=== PATIENT | female | born 1990 | race Caucasian/White ===

== ENCOUNTER 2022-11-02 13:15 | Inpatient (IN) | payer OTHER ==
[~2022-11-02] VITALS: Ht 182.9 cm; Wt 109.8 kg
[2022-11-02 14:18] LABS: HEMATOCRIT 42.6 % (31.2-41.9); MEAN CORPUSCULAR HEMOGLOBIN 31.1 uug (24.7-32.8); MEAN CORPUSCULAR VOLUME 90.5 fL (75.5-95.3); PLATELET COUNT (AUTO) 346 K/uL (179-408)
[2022-11-02 14:42] LABS: CARBON DIOXIDE 32 mmol/L (21-32); CHLORIDE 97 mmol/L (98-107); CREATININE 0.9 mg/dL (0.6-1.3); GLUCOSE 92 mg/dL (74-106); UREA NITROGEN, BLOOD 11 mg/dL (7-18)
[2022-11-02] MEDS ORDERED: ASPIRIN 81 MG TAB.CHEW ONE (15:58)
[2022-11-02] MEDS ORDERED: ASPIRIN 81 MG TAB.CHEW PO ONE (16:00)
[2022-11-02] MEDS ORDERED: HYDROCODONE/APAP 5-325MG TABLET PO PRN (19:45)
[2022-11-02] MEDS ORDERED: ONDANSETRON 4 MG/2 ML VIAL IV PRN (19:45)
[2022-11-02] MEDS ORDERED: ACETAMINOPHEN 325 MG TABLET PO PRN (19:45)
[2022-11-02 20:46] LABS: *AMPHETAMINE, URINE NEGATIVE (NEGATIVE); *CANNABINOID, URINE NEGATIVE (NEGATIVE); *COCCAINE, URINE NEGATIVE (NEGATIVE); *PHENCYCLIDINE SCREEN,URINE NEGATIVE (NEGATIVE)
[2022-11-02] MEDS ORDERED: ATORVASTATIN 20 MG TABLET ONE (22:45)
[2022-11-02] MEDS: ATORVASTATIN 40 MG TABLET PO SCH (22:49)
[2022-11-02 23:55] VITALS: BP 143/90
[2022-11-03] MEDS ORDERED: OXYCODONE/APAP 5-325 MG TABLET PO PRN
[2022-11-03] MEDS: OXYCODONE/APAP 5-325 MG TABLET PO PRN ×4 (00:39→22:33)
[2022-11-03 04:00] VITALS: BP_SYST 133; BP_SYST 163; BP_DIAS 88; BP_DIAS 99
[2022-11-03] MEDS: PANTOPRAZOLE SODIUM 40 MG TABLET.DR PO SCH (06:06)
[2022-11-03 06:21] LABS: MEAN CORPUSCULAR HEMOGLOBIN 31.4 uug (24.7-32.8); MEAN CORPUSCULAR VOLUME 91.1 fL (75.5-95.3); PLATELET COUNT (AUTO) 332 K/uL (179-408)
[2022-11-03 06:46] LABS: BILIRUBIN,TOTAL 0.6 mg/dL (0.2-1.0); CREATININE 0.8 mg/dL (0.6-1.3); MAGNESIUM 1.9 mg/dL (1.8-2.4); PHOSPHOROUS 3.4 mg/dL (2.5-4.9); POTASSIUM 3.6 mmol/L (3.5-5.1); TOTAL PROTEIN, SERUM 7.5 g/dL (6.4-8.2)
[2022-11-03 06:52] LABS: THYROID STIMULATING HORMONE 1.806 mIU/mL (0.358-3.740)
[2022-11-03] MEDS ORDERED: CEPH500C2 PO (07:24)
[2022-11-03] MEDS ORDERED: OXYC-128 PO (07:24)
[2022-11-03 07:30] VITALS: BP 140/82
[2022-11-03] MEDS: ASPIRIN EC 81 MG TABLET.DR PO SCH (08:39)
[2022-11-03] MEDS: CEphaleXIN 500 MG CAPSULE PO SCH ×2 (08:39→17:08)
[2022-11-03 11:36] VITALS: BP 114/73
[2022-11-03] MEDS: ALPRAZOLAM 0.25 MG TABLET PO PRN (12:26)
[2022-11-03 15:43] VITALS: BP 108/60
[2022-11-03 15:44] VITALS: BP 117/78
[2022-11-03 20:00] VITALS: BP 111/72
[2022-11-03] MEDS: ATORVASTATIN 40 MG TABLET PO SCH (22:32)
[2022-11-04] MEDS: ALPRAZOLAM 0.25 MG TABLET PO PRN (00:54)
[2022-11-04 04:00] VITALS: BP 130/74
[2022-11-04 06:39] LABS: HEMATOCRIT 39.7 % (31.2-41.9); MEAN CORPUSCULAR HEMOGLOBIN 30.3 uug (24.7-32.8); MEAN CORPUSCULAR VOLUME 90.6 fL (75.5-95.3); PLATELET COUNT (AUTO) 331 K/uL (179-408)
[2022-11-04] MEDS: PANTOPRAZOLE SODIUM 40 MG TABLET.DR PO SCH (07:11)
[2022-11-04 07:14] LABS: CREATININE 0.8 mg/dL (0.6-1.3); MAGNESIUM 1.9 mg/dL (1.8-2.4); PHOSPHOROUS 3.5 mg/dL (2.5-4.9); POTASSIUM 3.9 mmol/L (3.5-5.1)
[2022-11-04] MEDS: CEphaleXIN 500 MG CAPSULE PO SCH ×2 (09:00→17:00)
[2022-11-04] MEDS: ASPIRIN EC 81 MG TABLET.DR PO SCH (09:00)
[2022-11-04] MEDS: OXYCODONE/APAP 5-325 MG TABLET PO PRN (13:36)
[2022-11-04] MEDS ORDERED: ASPI-618 PO (14:18)
== END 2022-11-04 18:15 | disposition home or self-care (01) | DRG 206 ==
LOC: ER 13:15 → TELE3 22:50
PROVIDERS: ADMIT Internal Medicine; ATTEND Internal Medicine
DX: M94.0 Chondrocostal junction syndrome [Tietze] (principal); I24.9 Acute ischemic heart disease, unspecified; E66.9 Obesity, unspecified; Z68.32 Body mass index [BMI] 32.0-32.9, adult; R77.8 Other specified abnormalities of plasma proteins; Z98.890 Other specified postprocedural states; Z20.822 Contact with and (suspected) exposure to COVID-19; E78.5 Hyperlipidemia, unspecified; F41.9 Anxiety disorder, unspecified; Z82.49 Family history of ischemic heart disease and other diseases of the circulatory system
CPT/HCPCS: 36415; 71045; 83735; 84100; 84443; 84484; 85025; 93005; 93307; A4663; G0378